=== PATIENT | female | born 1935 | race American Indian/Alaskan Native ===

== ENCOUNTER 2018-01-17 12:56 | Emergency (ER) | payer OTHER ==
[2018-01-17] MEDS ORDERED: Ketorolac 30 MG/ML SDV IM ONE (14:23)
--- NOTE | 2018-01-17 14:30 | EDM.PDOC ---
ED HPI GENERAL MEDICAL PROBLEM - General Chief Complaint: Chest Pain Stated Complaint: STOMACH PAIN Time Seen by Provider: 01/17/18 14:00 Source of Information: Reports: Patient History Limitations: Reports: No Limitations - History of Present Illness INITIAL COMMENTS - FREE TEXT/NARRATIVE: Lyly was driving the car 2 hours ago when she developed sudden onset of R upper abdominal lower parasternal chest pains that were sharp, worse with movement. There was no SOB, palpitations, heartburn, gas or belching. She did feel a little nauseous, and had 1 loose stool at [facility]. Sxs have since improved. - Related Data Allergies Allergy/AdvReac Type Severity Reaction Status Date / Time No Known Allergies Allergy Verified 01/17/18 13:21 Home Meds: Home Meds Baclofen 10 mg PO Q12H 01/17/18 [History] Gabapentin [Gralise] 600 mg PO BEDTIME 01/17/18 [History] Gabapentin [Neurontin] 300 mg PO BID 01/17/18 [History] Hydrocodone/Acetaminophen [Lorcet 5-325 mg Tablet] 1 ea PO Q6H PRN 01/17/18 [ History] Ibuprofen [IJD: Ibuprofen] 800 mg PO Q8H PRN 01/17/18 [History] Lisinopril 40 mg PO BID 01/17/18 [History] Past Medical History Cardiovascular History: Reports: Hypertension Musculoskeletal History: Reports: Back Pain, Chronic ED ROS GENERAL - Review of Systems Review Of Systems: See Below Constitutional: Reports: No Symptoms HEENT: Reports: No Symptoms Respiratory: Reports: No Symptoms Cardiovascular: Reports: Chest Pain Endocrine: Reports: No Symptoms GI/Abdominal: Reports: Abdominal Pain, Nausea : Reports: No Symptoms Musculoskeletal: Reports: Back Pain, Joint Pain (hips) Skin: Reports: No Symptoms Neurological: Reports: No Symptoms Psychiatric: Reports: No Symptoms Hematologic/Lymphatic: Reports: No Symptoms Immunologic: Reports: No Symptoms ED EXAM, GENERAL - Physical Exam Exam: See Below Exam Limited By: No Limitations General Appearance: Alert, WD/WN, Mild Distress Head: Normocephalic Neck: Normal Inspection, Supple, Non-Tender, Full Range of Motion Respiratory/Chest: No Respiratory Distress, Lungs Clear, Normal Breath Sounds, No Accessory Muscle Use, Other (L parasternal tenderness at T5,T6) Cardiovascular: Regular Rate, Rhythm, No Murmur GI/Abdominal: Normal Bowel Sounds, Soft, Non-Tender, No Organomegaly, No Distention, No Abnormal Bruit, No Mass (Female) Exam: Deferred Rectal (Female) Exam: Deferred Back Exam: Normal Inspection Extremities: Normal Inspection Neurological: Alert, Oriented, CN II-XII Intact, Normal Cognition, No Motor/ Sensory Deficits Psychiatric: Normal Affect, Anxious Skin Exam: Warm, Dry, Intact Lymphatic: No Adenopathy Course - Vital Signs Text/Narrative:: Following assessment at the [facility], atypical chest pain appeared to be the predominant sxs. I adminstered Toradol 30 mg IM and observed over the next hour. A resting 12 lead ekg was satisfactory. Pains improved prior to discharge. Last Recorded V/S: Last Vital Signs Temp 36.6 C 01/17/18 13:24 Pulse 83 01/17/18 13:24 Resp 20 01/17/18 13:24 BP 195/108 H 01/17/18 13:24 Pulse Ox 97 01/17/18 13:24 - Orders/Labs/Meds Orders: Active Orders 24 hr Category Date Time Status EKG 12 Lead [EK] Routine Ther 01/17/18 14:23 Ordered Meds: Medications Discontinued Medications Generic Name Dose Route Start Last Admin Trade Name Freq PRN Reason Stop Dose Admin Ketorolac Tromethamine 30 mg 01/17/18 14:23 01/17/18 14:42 Toradol IM 01/17/18 14:24 30 mg ONETIME ONE Administration Departure - Departure Time of Disposition: 15:26 Disposition: Home, Self-Care 01 Condition: Good Clinical Impression: Atypical chest pain - Discharge Information Referrals: PCP,None [Primary Care Provider] - Forms: ED Department Discharge - Problem List & Annotations (1) Atypical chest pain SNOMED Code(s): 563829026 Code(s): R07.89 - OTHER CHEST PAIN Status: Acute Current Visit: Yes Annotation/Comment:: I suggested NSAIDs for atypical chest pains,and follow up with PCP. - Problem List Review Problem List Initiated/Reviewed/Updated: Yes - My Orders Last 24 Hours: My Active Orders 01/17/18 14:23 EKG 12 Lead [EK] Routine - Assessment/Plan Last 24 Hours: My Active Orders 01/17/18 14:23 EKG 12 Lead [EK] Routine Plan: Follow up with PCP.
== END 2018-01-17 15:38 | disposition home or self-care (01) ==
LOC: FB.ED 12:56
DX: R07.89 Other chest pain (principal); I10 Essential (primary) hypertension; Z79.899 Other long term (current) drug therapy
CPT/HCPCS: 93005; 96372; 99284; J1885